=== PATIENT | female | born 1960 | race Caucasian/White ===

== ENCOUNTER 2018-04-30 06:24 | Inpatient (IN) | payer BC ==
[~2018-04-30] VITALS: Ht 165.1 cm; Wt 97.5 kg
[~2018-04-30 06:24] MED LIST: ASPI81TA27 PO; HYDR200T36 PO; LEVO25TA6 PO; LISI10TA6 PO; METH2.5T3 PO; METO25TA62 PO; SIMV10TA84 PO
[2018-04-30] MEDS ORDERED: fentaNYL CITRATE 100 MCG/2 ML VL ONE (07:27)
[2018-04-30] MEDS ORDERED: MIDAZOLAM HCL 1MG/1ML-2 ML VIAL ONE (07:27)
[2018-04-30] MEDS ORDERED: HEPARIN IN NS 1000Units/500mL 1,500 ML ONE (07:37)
[2018-04-30] MEDS ORDERED: LIDOCAINE 2%HCL (LOCAL ANESTH.) INJ 20ML MDV ONE (07:37)
[2018-04-30] MEDS ORDERED: METOPROLOL TARTRATE 1MG/1ML-5ML VIAL IV ONE (10:24)
[2018-04-30] MEDS ORDERED: MORPHINE SULFATE 4 MG/ML SYR/VIAL IV PRN (11:00)
[2018-04-30] MEDS ORDERED: HYDROcodone-ACET 5/325MG TAB PO PRN (11:00)
[2018-04-30] MEDS ORDERED: ASPirin 81 mg TAB PO ONE (11:00)
[2018-04-30] MEDS ORDERED: NITROGLYCERIN 0.4 MG SL TAB SL PRN (11:00)
[2018-04-30] MEDS ORDERED: ONDANSETRON HCL 4 MG/2 ML VIAL IV PRN (11:00)
[2018-04-30] MEDS ORDERED: ACETAMINOPHEN 500 MG TAB PO PRN (11:00)
[2018-04-30] MEDS ORDERED: METHOTREXATE 2.5 MG TAB PO SCH (11:15)
[2018-04-30] MEDS ORDERED: ASPirin 81 mg TAB ONE (11:31)
[2018-04-30] MEDS: HYDROXYCHLOROQUINE SULFATE 200 MG TAB PO SCH (12:00)
[2018-04-30] MEDS: SODIUM CHLOR 0.9% PF (SALINE LOCK) 10ML VIAL/SYR IV SCH ×2 (14:00→22:00)
[2018-04-30 16:10] VITALS: BP 149/68
--- NOTE | 2018-04-30 16:10 | NUR ---
Telemetry admit from ER [facility] admitted to Telemetry unit after SBAR received. Patient oriented to Tanya Cano, primary RN, unit, room, bed, and unit policies regarding patient care and visiting hours. Patient now on continuous telemetry monitoring, tele box # [id number] and telemetry reading on arrival to unit is sinus rhythm [id number] [id number] PVDCs. Patient placed on bedside oxygen, weighed by bedscale and encouraged to call if they need something. All questions and concerns addressed, patient verbalized understanding. Rt groin dressing clean and dry, rt groin area soft to touch, pt denies any pain at this time, will continue to monitor pt.
[2018-04-30 17:00] VITALS: BP 149/68
--- NOTE | 2018-04-30 19:15 | NUR ---
OPENING SHIFT NOTE ASSUMED CARE OF PATIENT FROM DAY SHIFT RN JASPER. PATIENT IS SITTING UP IN OF BED TALKING ON HER CELL PHONE. RESPIRATIONS ARE EVEN AND UNLABORED WITH NO S/S OF DISTRESS OR PAIN AT THIS TIME. BED IS LOW, LOCKED, CALL LIGHT IS IN REACH, AND NONSKID SOCKS ARE ON. INSTRUCTED POC AND TO CALL PRN. WILL CONTINUE TO MONITOR.
[2018-04-30 20:00] VITALS: BP 122/60
[2018-04-30] MEDS ORDERED: PRAVASTATIN SODIUM 20 MG TAB PO SCH (22:00)
[2018-04-30] MEDS: amLODIPine BESYLATE 5 MG TAB PO SCH (22:51)
[2018-04-30] MEDS: METOPROLOL TARTRATE 25 MG TAB PO SCH (22:51)
[2018-05-01 05:29] VITALS: BP 128/61
[2018-05-01] MEDS: SODIUM CHLOR 0.9% PF (SALINE LOCK) 10ML VIAL/SYR IV SCH (06:18)
[2018-05-01] MEDS ORDERED: LEVOTHYROXINE SODIUM 25 MCG TAB PO SCH (07:00)
--- NOTE | 2018-05-01 07:04 | NUR ---
CLOSING SHIFT NOTE PATIENT IS RESTING IN BED WATCHING THE MORNING NEWS WITH EVEN AND UNLABORED RESPIRATIONS. NO S/S OF DISTRESS OR PAIN NOTED AT THIS TIME. BED IS IN LOWEST POSITION, LOCKED, CALL LIGHT IS IN REACH, AND NON SKID SOCKS ARE ON. CARE TRANSFERRED TO DAY SHIFT RN.
[2018-05-01 08:40] VITALS: BP 127/68
--- NOTE | 2018-05-01 08:47 | NUR ---
pt resting in bed, no distress noted. pt reports no pain. right groin dressing clean dry and intact. no erythema or swelling noted. patient encouraged to use call light prn, will continue to monitor. Addendum: 05/01/18 at 0850 by PAUL ESCALANTE RN DR OLIVARES SAW PATIENT AND DISCUSSED POSSIBLE DISCHARGE TODAY PENDING CLEARANCE FRO DR. LOVE. PT VERBALIZED UNDERSTANDING.
--- NOTE | 2018-05-01 09:10 | NUR ---
DR LOVE CALLED. PT TO TAKE THE METOPROLOL TART PRESCRIPTION HE WROTE, NOT THE METOPROLOL THE PATIENT TAKES AT HOME. PT EDUCATED TO STOP TAKING HER CURRENT METOPROLOL PRESCRIPTION AND TAKE THE NEW PRESCRIPTION FROM DR OLIVARES. PT EDUCATED HER HR AND BP COULD DROP TOO LOW IF SHE TAKES BOTH. PT AND VERBALIZED UNDERSTANDING.
--- NOTE | 2018-05-01 09:49 | NUR ---
SOFT SUGAR CUTTER REPORTS PT HR 42. REASSESSED PT HEART RATE, HR 64. WILL CONTINUE TO MONITOR. Addendum: 05/01/18 at 1344 by PAUL ESCALANTE RN PT REPORTS SHE "FEELS FINE," PT REPORTS NO SYMPTOMS AND IS LOOKING FORWARD TO GOING HOME, WILL CONTINUE TO MONITOR.
[2018-05-01] MEDS: amLODIPine BESYLATE 5 MG TAB PO SCH (09:52)
[2018-05-01] MEDS: METOPROLOL TARTRATE 25 MG TAB PO SCH (09:56)
[2018-05-01] MEDS ORDERED: LISINOPRIL 10 MG TAB PO SCH (10:00)
[2018-05-01] MEDS ORDERED: ASPirin-EC 81 mg tab PO SCH (10:00)
[2018-05-01 11:31] VITALS: BP 127/68
[2018-05-01] MEDS: HYDROXYCHLOROQUINE SULFATE 200 MG TAB PO SCH (12:00)
--- NOTE | 2018-05-01 13:00 | NUR ---
Discharge instructions given as ordered. Encourage to follow up with PMD as instructed. All questions and concerns addressed. Patient verbalized understanding. Medication reconciliation form completed and copy given to patient. IV removed with catheter intact, pressure dressing applied. Telemetry unit returned to ICU. Patient taken to vehicle via wheelchair with all personal belongings, accompanied by staff and . No distress noted at time of departure.
== END 2018-05-01 13:56 | disposition home or self-care (01) | DRG 274 ==
LOC: CATH 06:24 → TELE-CENTR 16:13
PROVIDERS: ADMIT Specialist; ATTEND Specialist
PROC: 02583ZZ Destruction of Conduction Mechanism, Percutaneous Approach (ICD-10-PCS; principal; 2018-04-30)
PROC: 02K83ZZ Map Conduction Mechanism, Percutaneous Approach (ICD-10-PCS; 2018-04-30)
PROC: 4A023FZ Measurement of Cardiac Rhythm, Percutaneous Approach (ICD-10-PCS; 2018-04-30)
PROC: 4A0234Z Measurement of Cardiac Electrical Activity, Percutaneous Approach (ICD-10-PCS; 2018-04-30)
DX: I47.2 Ventricular tachycardia (principal); M06.9 Rheumatoid arthritis, unspecified; E03.9 Hypothyroidism, unspecified; I47.1 Supraventricular tachycardia; I10 Essential (primary) hypertension; G47.30 Sleep apnea, unspecified; Z79.82 Long term (current) use of aspirin; Z82.49 Family history of ischemic heart disease and other diseases of the circulatory system; Z79.899 Other long term (current) drug therapy
CPT/HCPCS: 93005; 99152; A6257; G0378; J2250